=== PATIENT | female | born 1955 | race Caucasian/White ===

== ENCOUNTER 2022-01-05 09:59 | Outpatient (CLI) | payer MEDICARE, OTHER ==
[2022-01-05 10:55] VITALS: BP 126/72
--- NOTE | 2022-01-05 10:55 | SLEEP CARE CONSULTATION ---
Information from patient questionnaire entered by Carole Langley. I have reviewed and concur with the information entered by Carole Langley. This document represents the service I personally performed and the decisions made by me, Anitha Bolanos ARNP. History of Present Illness Service Date and Time: 01/05/2022 0959 Reason for Visit: New patient, Previously diagnosed sleep apnea, sleep apnea on CPAP therapy Chief Complaint: reports: Other (Update supplies) Date of Onset: 5 years Usual bedtime: 10 PM Time it takes to fall asleep: 10-30 minutes Snores at night: Yes Observed to quit breathing while asleep: Yes Sleeps alone due to snoring: No Number of times waking at night: 1-2 times Reasons for waking at night: reports: Bathroom Toss, Turn, or Twitch while sleeping: No Recalls having dreams: Yes Usually gets out of bed at: 6-7 AM Feels refreshed in the morning: Yes Morning headache: Yes (sometimes) Sleepy or fatigued during the day: No Ever fallen asleep while driving: No Takes day naps: No Dreams during day naps: No Prior sleep studies: Yes Year and Where: [facility] 2-3 yrs ago Additional HPI information: LETTY PIZANO was previously diagnosed to have mild to moderate (according to pt), AHI unknown, sleep apnea-hypopnea syndrome and comes in today to establish care for CPAP therapy. - Parasomnia Symptoms Ever been unable to move upon waking from sleep: No Walks in sleep: No Talks in sleep: No Ever acted out dreams in sleep: Yes Ever felt weak in the knees when startled or emotional: Yes Bothered by creepy, crawly, restless sensations in legs: No Problems with memory or concentration: Yes CPAP Compliance Data - Data Reviewed with Patient Average duration of nightly device use: 5 hours 54 minutes Compliance rate %: 89 (176/180 days used) Current pressure setting (cmH2O): 5-15 Average residual AHI: 1.5 Central apnea: 0.9 Obstructive apnea: 0.3 Compliance data discussion: Patient has a ResMed Airsense 10 CPAP, set at 5-15 cmH2O. She has been getting her supplies from [facility]. She is using a nasal cushion mask. Subjective Missed days of use due to: reports: travel, other (power outage) Patient concerns: reports: dry mouth, nose, throat (when on back, oral venting). denies: aerophagia, mask discomfort, air blowing in eyes, mask leak noise, condensation in mask/hose, nasal congestion, epistaxis Observed to snore while using device: No Current pressure setting perceived as: comfortable On therapy, patient: reports: being more awake and alert during the day, more rested overall. denies: drowsiness while driving Initial [place] Sleepiness Scale score: 1 (12/2021) Past Medical History Past Medical History: reports: Claustrophobia, Arthritis, Fibromyalgia, Anxiety, Depression, GERD, Other (DJD, interstitial cystitis, Lumbar spinal stenosis, Polyneuropathy) Social History The patient's occupation is a RE. Patient is and lives in [place]. Have you smoked in the past 12 months: No Alcohol use: No Caffeine use: Yes Caffeine amount and frequency: 2 cups coffee daily Family History Family history of sleep disordered breathing: No Allergies and Home Medications Drug allergies reviewed: Yes (Vancomycin) Home medication list reviewed: Yes (see list updated in EMR) Review of Systems Weight gain over past 5 years: 10 Cardiovascular: reports: leg or foot swelling. denies: high blood pressure Respiratory: denies: shortness of breath Gastrointestinal: reports: heartburn, nausea Urinary: reports: incontinence, frequency, urgency Neurological: reports: headaches, gait or balance problems Psychiatric: reports: anxiety, depression Ear/Nose/Throat: reports: nasal congestion, sinus problems, dry mouth/throat, hoarseness, wisdom teeth removed. denies: tonsillectomy Endocrine: reports: sluggishness, too hot or cold, unexplained weakness Musculoskeletal: reports: joint pain, neck pain, back pain, joint swelling, muscle pain or cramping, mobility problems Physical Exam Vital signs obtained and entered by: CAROLE Samson MA Blood Pressure: 126/72 (left arm) Cuff size: regular Heart Rate: 78 O2 Saturation: 96 Height: 5 ft 7 in Weight: 175 lb 6.4 oz Body Mass Index: 27.4 BMI Classification: Overweight Neck circumference: 14 Heart: regular rate and rhythm Lungs: clear bilaterally Impression and Plan 1. Obstructive Sleep Apnea-Hypopnea Syndrome, unknown, with good treatment compliance and good apnea control. On CPAP therapy, the patient has better sleep quality and is more rested overall. Patient has been getting supplies from [facility] but would like to change to a full face mask, like Dreamwear. She has not had a follow up with a sleep provider since she got set up with her machine. She is very compliant, although she does not like using it. We need a copy of her last sleep study and this will be requested. Once I have verification, a prescription for supplies and a mask refitting for full face mask will be sent to DME. Patient's apnea severity and rationale for treatment to reduce apnea, improve sleep quality and reduce cardiovascular and cerebrovascular events was reviewed. I also reviewed the benefit of consistent device use of CPAP for gastric reflux, depression, anxiety and fibromyalgia. 2. Overweight unspecified. Currently patients BMI is 27.4. Obesity increases the risk of apnea, CPAP pressure requirements and overall health risks especially cardiovascular and diabetes. Thus patient is advised to lose weight. * Continue auto CPAP pressure at 5-15 cmH2O * Obtain last sleep study * Update supplies * Mask refitting for full face mask; prefers Dreamwear full face * Notify me if snoring with mask or feeling that the pressure is too much or too little * Attempt to lose weight * Call this office if any problems using CPAP * Return for follow up in 1 year, or sooner if concerns arise Counseling Topics: Spare mask, Weight loss health impact Visit Type: In Office Time Spent with Patient (minutes): 32 Provider Statement: I spent 100% of the Face to Face Visit with the patient with greater than 50% spent counseling the patient and coordination of care.
== END 2022-01-05 10:00 | disposition home or self-care (01) ==
LOC: SC 09:59
PROVIDERS: ATTEND Nurse Practitioner Family
DX: G47.33 Obstructive sleep apnea (adult) (pediatric) (principal); E66.3 Overweight; Z68.27 Body mass index [BMI] 27.0-27.9, adult
CPT/HCPCS: 99203; G0463; 99212

== ENCOUNTER 2022-01-19 07:55 | Outpatient (CLI) | payer MEDICARE, OTHER ==
--- NOTE | 2022-01-19 09:41 | DEXA Report ---
PROCEDURE: Dexa Spine and/or Hip INDICATIONS: POST MENOPAUSAL TECHNIQUE: Dual energy x-ray absorptiometry (DXA) was performed on a Rayneer System. Regions measur ed are the AP Spine, femoral neck, and if needed forearm. COMPARISON: None. FINDINGS: Lumbar Spine: Bone Mineral Density 1.186 g/cm/cm,T score 0.0. Left Femoral Neck: Bone Mineral Density 0.839 g/cm/cm, T score -1.4. Left Hip: Bone Mineral Density 0.888 g/cm/cm,T score -1.0. (T score greater or equal to -1.0: NORMAL) (T score from -1.1 to -2.4: OSTEOPENIA) (T score less than or equal to -2.5 to: OSTEOPOROSIS) Impression: Osteopenia. Patients with diagnosis of osteoporosis or osteopenia should have regular bone mineral density assess ment. For those eligible for Medicare, routine testing is allowed once every 2 years. Testing frequ ency can be increased for patients who have rapidly progressing disease or for those who are receivin g medical therapy to restore bone mass. Reviewed by: Qamar Berg MD on 01/19/2022 9:40 AM PST Approved by: Qamar Berg MD on 01/19/2022 9:40 AM PST Station ID: [id number]
== END 2022-01-19 07:56 | disposition home or self-care (01) ==
LOC: DI 07:55
PROVIDERS: ATTEND Internal Medicine
DX: M85.88 Other specified disorders of bone density and structure, other site (principal); Z78.0 Asymptomatic menopausal state

== ENCOUNTER 2023-01-30 20:27 | Emergency (ER) | payer MEDICARE, OTHER ==
[2023-01-30] MEDS ORDERED: LIDOCAINE 2%-EPI 1:100000 20 ML MDV SUBQ STA (20:38)
[2023-01-30] MEDS ORDERED: lidocaine 1% 20 ML MDV SUBQ ONE (20:42)
[2023-01-30 20:53] VITALS: BP 148/86; O2SAT 98
--- NOTE | 2023-01-30 21:14 | ED Physician Documentation ---
PD HPI SKIN - Stated complaint Stated Complaint: LT HAND LAC - Chief complaint Chief Complaint: Laceration - History obtained from History obtained from: Patient - Additional information Additional information: 67-year-old woman presents with left second finger distal laceration while cutting potatoes at dinner tonight. Able to move the finger without difficulty. PD PAST MEDICAL HISTORY - Past Medical History Past Medical History: Yes Neuro: Peripheral neuropathy Psych: Depression, Anxiety Musculoskeletal: Rheumatoid arthritis, Chronic back pain, Other Other Past Medical History: Edema to bilat lower legs - Past Surgical History Past Surgical History: Yes - Present Medications Home Medications: Ambulatory Orders Medication Instructions Recorded Confirmed Amitriptyline [Elavil] See Rx Instructions .ROUTE .COMPLEX 01/05/22 01/05/22 Biotin See Rx Instructions .ROUTE .COMPLEX 01/05/22 01/05/22 Calcium Carbonate See Rx Instructions .ROUTE .COMPLEX 01/05/22 01/05/22 Estrogen,Con/M-Progest Acet See Rx Instructions .ROUTE .COMPLEX 01/05/22 01/05/22 [Prempro 0.3 mg-1.5 mg Tablet] Fluoxetine HCl [Prozac] See Rx Instructions .ROUTE .COMPLEX 01/05/22 01/05/22 Fluticasone [Flonase] See Rx Instructions .ROUTE .COMPLEX 01/05/22 01/05/22 Loratadine [Claritin] See Rx Instructions .ROUTE .COMPLEX 01/05/22 01/05/22 Methadone [Methadone Hcl] See Rx Instructions .ROUTE .COMPLEX 01/05/22 01/05/22 Multivit-Min/Iron/Folic/Lutein See Rx Instructions .ROUTE .COMPLEX 01/05/22 01/05/22 [Multivitamin Women 50 Plus Tab] Naloxone HCl [Narcan] See Rx Instructions .ROUTE .COMPLEX 01/05/22 01/05/22 Pregabalin [Lyrica] See Rx Instructions .ROUTE .COMPLEX 01/05/22 01/05/22 Spironolactone [Aldactone] See Rx Instructions .ROUTE .COMPLEX 01/05/22 01/05/22 Ubrogepant [Ubrelvy] See Rx Instructions .ROUTE .COMPLEX 01/05/22 01/05/22 polyethylene glycoL 3350 See Rx Instructions .ROUTE .COMPLEX 01/05/22 01/05/22 [Polyethylene Glycol 3350] predniSONE [Prednisone] See Rx Instructions .ROUTE .COMPLEX 01/05/22 01/05/22 traMADol [Ultram] See Rx Instructions .ROUTE .COMPLEX 01/05/22 01/05/22 - Allergies Allergies/Adverse Reactions: Allergies Allergy/AdvReac Type Severity Reaction Status Date / Time vancomycin Allergy Rash Verified 01/30/23 20:40 - Social History Does the pt smoke?: No Smoking Status: Never smoker Does the pt drink ETOH?: No Does the pt have substance abuse?: No - Immunizations Immunizations are current?: Yes - POLST Patient has POLST: No PD ED PE NORMAL - Vitals Vital signs reviewed: Yes - General General: Alert and oriented X 3, No acute distress, Well developed/nourished - Derm Derm: Normal color, Warm and dry, Other (1 cm curved laceration to the distal volar aspect of left second finger, hemostatic with no foreign body. Good capillary refill) Results - Vitals Vitals: Vital Signs - 24 hr 01/30/23 20:30 Temperature 36.2 C L Heart Rate 96 Blood Pressure 148/86 H O2 Saturation 98 Oxygen O2 Source Room air Procedures - Laceration (location) Finger left Length in cm: 1 Wound type: Curved Neurovascular status: Sensory intact, Motor intact, Vascular intact Tendon involvement: Tendon intact Anesthesia: Lidocaine 1% Wound preparation: Irrigated copiously NS, Wound explored, To the base Skin layer closure: Nylon, Size #-0 - enter number (4), Sutures - enter # (4) Other: Patient tolerated well, No complications, Neurovascular intact, Dressing applied, Tetanus UTD PD Medical Decision Making - ED course ED course: 67-year-old woman presents with uncomplicated laceration of left second distal finger, repaired with 4 simple interrupted nylon 4oh stitches without complication. Tetanus is up-to-date. Advised to remove in 14 days. Plan to follow-up with primary care provider or walk-in clinic for removal. return precatuions given Departure - Departure Disposition: 01 Home, Self Care Clinical Impression: Laceration of finger Condition: Stable Instructions: ED Laceration All Comments: You were seen in the emergency department for cut on the finger. You got 4 stitches that need to be removed in 14 days. Please follow-up with walk in clinic or call your primary care provider for removal and return to the emergency department if you have any new or worsening symptoms or other concerns. Forms: PCP List
== END 2023-01-30 21:15 | disposition home or self-care (01) ==
LOC: ED 20:27
DX: S61.211A Laceration without foreign body of left index finger without damage to nail, initial encounter (principal); W26.0XXA Contact with knife, initial encounter; Y93.G1 Activity, food preparation and clean up
CPT/HCPCS: 12001; 99282